=== PATIENT | male | born 1950 | race Caucasian/White ===

== ENCOUNTER → 2019-05-04 | Outpatient (CLI) | payer OTHER ==
[~2019-05-04] MED LIST: COREG25 MG PO; DEMADEX20 MG PO; DOXYCYCLINE 10100 MG PO; ELIQUIS5 MG PO; IBUPROFEN 600600 M1 PO; LISINOPRIL2.5 MG PO; OXYCONTIN10 M1 PO
== END ==
LOC: HYPER 05-01 10:41
DX: L97.822 Non-pressure chronic ulcer of other part of left lower leg with fat layer exposed (principal); I87.2 Venous insufficiency (chronic) (peripheral); I48.2 Chronic atrial fibrillation; L30.9 Dermatitis, unspecified; M10.9 Gout, unspecified; J44.9 Chronic obstructive pulmonary disease, unspecified; R60.0 Localized edema; F17.200 Nicotine dependence, unspecified, uncomplicated; Z79.01 Long term (current) use of anticoagulants

== ENCOUNTER → 2019-05-08 | Outpatient (CLI) | payer OTHER | LOC: HYPER 06:50 | DX: L97.825 Non-pressure chronic ulcer of other part of left lower leg with muscle involvement without evidence of necrosis (principal); I87.2 Venous insufficiency (chronic) (peripheral); I48.2 Chronic atrial fibrillation; L30.9 Dermatitis, unspecified; R60.0 Localized edema; J44.9 Chronic obstructive pulmonary disease, unspecified; M10.9 Gout, unspecified; F17.200 Nicotine dependence, unspecified, uncomplicated; F12.90 Cannabis use, unspecified, uncomplicated; Z79.01 Long term (current) use of anticoagulants ==

== ENCOUNTER 2019-05-09 11:19 | Observation (INO) | payer OTHER ==
[~2019-05-09] VITALS: Ht 193 cm; Wt 136.1 kg
[~2019-05-09 11:19] MED LIST changes: -COREG25 MG PO; -DEMADEX20 MG PO; -DOXYCYCLINE 10100 MG PO; -ELIQUIS5 MG PO; -LISINOPRIL2.5 MG PO; -OXYCONTIN10 M1 PO
[2019-05-09 12:11] VITALS: BP 122/62
[2019-05-09] MEDS ORDERED: COREG25 MG PO (12:21)
[2019-05-09] MEDS ORDERED: ELIQUIS5 MG PO (12:22)
[2019-05-09] MEDS ORDERED: LISINOPRIL2.5 MG PO (12:23)
[2019-05-09] MEDS ORDERED: DEMADEX20 MG PO (12:24)
[2019-05-09] MEDS ORDERED: OXYCONTIN10 M1 PO (12:25)
[2019-05-09] MEDS ORDERED: DOXYCYCLINE 10100 MG PO (12:28)
[2019-05-09 15:45] VITALS: BP 123/90
[2019-05-09 16:12] VITALS: BP 152/55
[2019-05-09 16:30] VITALS: BP 129/59
--- NOTE | 2019-05-09 16:40 | NUR ---
PT TRANSFERRED TO CCU POST LEFT LEG RUNOFF WITH STENT PLACEMENT. PT CARE ASSUMED APPROX 1545. PT ALERT AND ORIENTED X4.REPORTS PAIN IN RIBS WHERE CURRENT FRACTURES ARE 10. REQUESTED IV PAIN MEDS. SCHEDULED MEDS AND PRN MORPHINE GIVEN. PT MOOD IS AGITATED. DENIES ANYTHING THAT NURSING STAFF DID TO UPSET HIM. REPORTS THAT "I'M JUST READY TO GO HOME." RIGHT GROIN SITE C/D/I. BEDREST UNTIL 1815. NS AT 150ML/HR X3 HRS. NS STARTED LATE DUE TO NOT PUT IN EMAR AND ORDER WENT UN-NOTICED FOR 45MIN. PT UPSET BUT AGREEABLE. NECESSITY TO FLUSH CONTRAST FROM SYSTEM AND PROTECT KIDNEYS WAS EXPLAINED TO PT AND SPOUSE. REFUSES TO EAT. PT REQUIRED O2 UPON TRANSFER BUT O2 SAT WNL ON RA. RESTING AT THIS TIME.
[2019-05-09 17:30] VITALS: BP 122/69
--- NOTE | 2019-05-09 18:55 | NUR ---
PT LEAVING AMA AT THIS TIME. REITERATED PREVIOUS EDUCATION REGARDING RIGHT GROIN SITE AND NS INFUSION NOT COMPLETING AND POTENTIAL COMPLICATIONS. PT ADAMANT. AMA PAPERWORK SIGNED. POST PROCEDURE VS REFUSED. INTERMITTENLY OBTAINED PER PT ALLOWANCE. RIGHT GROIN SITE C/D/I. DR CORTEZ CALLED BUT HAS NOT RETUNRED CALL YET. LEFT WITH PT AND PROVIDING TRANSPORTATION HOME. F/U APPT GIVEN TO PT'S . IV OUT, TELE OFF.
--- NOTE | 2019-05-09 19:23 | NUR ---
PT ALSO NOTIFIED PRIOR TO LEAVING AMA THAT ON MINIMAL EXERTION HIS HR WAS SUSTAINING 120S-130S. WILL NOTIFY DR WHENEVER HE RETURNS CALL MADE TO HIM AFTER PT LEFT.
--- NOTE | 2019-05-09 19:44 | NUR ---
NEVER CALLED BACK TO NOTIFY HIM OF PT GOING AMA. PASSED TO NOC CHARGE NURSE INFORMATION TO GIVE DR IN CASE PAGE IS RETURNED.
== END 2019-05-09 19:20 | disposition home or self-care (01) ==
LOC: SPEC 11:19 → 2N 15:40
PROVIDERS: ADMIT Nuclear Medicine Nuclear Cardiology
DX: I73.9 Peripheral vascular disease, unspecified (principal); I25.10 Atherosclerotic heart disease of native coronary artery without angina pectoris; L97.929 Non-pressure chronic ulcer of unspecified part of left lower leg with unspecified severity; I12.9 Hypertensive chronic kidney disease with stage 1 through stage 4 chronic kidney disease, or unspecified chronic kidney disease; N18.9 Chronic kidney disease, unspecified; Z79.899 Other long term (current) drug therapy

== ENCOUNTER → 2019-05-16 | Outpatient (CLI) | payer OTHER ==
[~2019-05-16] MED LIST changes: +COREG25 MG PO; +DEMADEX20 MG PO; +DOXYCYCLINE 10100 MG PO; +ELIQUIS5 MG PO; +LISINOPRIL2.5 MG PO; +OXYCONTIN10 M1 PO
== END ==
LOC: HYPER 06:51
DX: L97.811 Non-pressure chronic ulcer of other part of right lower leg limited to breakdown of skin (principal); L97.825 Non-pressure chronic ulcer of other part of left lower leg with muscle involvement without evidence of necrosis; L30.9 Dermatitis, unspecified; G89.29 Other chronic pain; I87.2 Venous insufficiency (chronic) (peripheral); I48.2 Chronic atrial fibrillation; R60.0 Localized edema; J44.9 Chronic obstructive pulmonary disease, unspecified; M10.9 Gout, unspecified; F17.200 Nicotine dependence, unspecified, uncomplicated; Z79.01 Long term (current) use of anticoagulants

== ENCOUNTER → 2019-05-23 | Outpatient (CLI) | payer OTHER | LOC: HYPER 06:40 | DX: L97.822 Non-pressure chronic ulcer of other part of left lower leg with fat layer exposed (principal); L97.811 Non-pressure chronic ulcer of other part of right lower leg limited to breakdown of skin; I87.2 Venous insufficiency (chronic) (peripheral); I48.2 Chronic atrial fibrillation; L30.9 Dermatitis, unspecified; M10.9 Gout, unspecified; G89.29 Other chronic pain; R60.0 Localized edema; J44.9 Chronic obstructive pulmonary disease, unspecified; F17.200 Nicotine dependence, unspecified, uncomplicated; Z79.01 Long term (current) use of anticoagulants ==

== ENCOUNTER → 2019-06-01 | Outpatient (CLI) | payer OTHER | LOC: HYPER 06:50 | DX: L97.822 Non-pressure chronic ulcer of other part of left lower leg with fat layer exposed (principal); S22.42XD Multiple fractures of ribs, left side, subsequent encounter for fracture with routine healing; I87.2 Venous insufficiency (chronic) (peripheral); I48.2 Chronic atrial fibrillation; I73.9 Peripheral vascular disease, unspecified; L30.9 Dermatitis, unspecified; M10.9 Gout, unspecified; G89.29 Other chronic pain; R60.0 Localized edema; J44.9 Chronic obstructive pulmonary disease, unspecified; F17.200 Nicotine dependence, unspecified, uncomplicated; Z79.01 Long term (current) use of anticoagulants; X58.XXXD Exposure to other specified factors, subsequent encounter ==

== ENCOUNTER → 2019-06-15 | Outpatient (CLI) | payer OTHER | LOC: HYPER 06:41 | DX: L97.822 Non-pressure chronic ulcer of other part of left lower leg with fat layer exposed (principal); I87.2 Venous insufficiency (chronic) (peripheral); I48.2 Chronic atrial fibrillation; I73.9 Peripheral vascular disease, unspecified; L30.9 Dermatitis, unspecified; M10.9 Gout, unspecified; G89.29 Other chronic pain; R60.0 Localized edema; J44.9 Chronic obstructive pulmonary disease, unspecified; F17.200 Nicotine dependence, unspecified, uncomplicated; Z79.01 Long term (current) use of anticoagulants ==

== ENCOUNTER → 2019-06-29 | Outpatient (CLI) | payer OTHER | LOC: HYPER 07:27 | DX: L97.822 Non-pressure chronic ulcer of other part of left lower leg with fat layer exposed (principal); I87.2 Venous insufficiency (chronic) (peripheral); I48.2 Chronic atrial fibrillation; L30.9 Dermatitis, unspecified; I73.9 Peripheral vascular disease, unspecified; M10.9 Gout, unspecified; G89.29 Other chronic pain; R60.0 Localized edema; J44.9 Chronic obstructive pulmonary disease, unspecified; F17.200 Nicotine dependence, unspecified, uncomplicated; Z79.01 Long term (current) use of anticoagulants ==

== ENCOUNTER → 2019-07-17 | Outpatient (CLI) | payer OTHER | LOC: HYPER 13:45 | DX: L97.825 Non-pressure chronic ulcer of other part of left lower leg with muscle involvement without evidence of necrosis (principal); S22.42XD Multiple fractures of ribs, left side, subsequent encounter for fracture with routine healing; I87.2 Venous insufficiency (chronic) (peripheral); I48.20 Chronic atrial fibrillation, unspecified; I73.9 Peripheral vascular disease, unspecified; M10.9 Gout, unspecified; J44.9 Chronic obstructive pulmonary disease, unspecified; G89.29 Other chronic pain; F17.290 Nicotine dependence, other tobacco product, uncomplicated; Z79.01 Long term (current) use of anticoagulants; V29.9XXD Motorcycle rider (driver) (passenger) injured in unspecified traffic accident, subsequent encounter ==

== ENCOUNTER → 2019-08-02 | Outpatient (CLI) | payer OTHER | LOC: HYPER 11:16 | DX: L97.822 Non-pressure chronic ulcer of other part of left lower leg with fat layer exposed (principal); I87.2 Venous insufficiency (chronic) (peripheral); I48.20 Chronic atrial fibrillation, unspecified; L30.9 Dermatitis, unspecified; M10.9 Gout, unspecified; G89.29 Other chronic pain; I73.9 Peripheral vascular disease, unspecified; R60.0 Localized edema; J44.9 Chronic obstructive pulmonary disease, unspecified; F17.200 Nicotine dependence, unspecified, uncomplicated; Z79.01 Long term (current) use of anticoagulants ==

== ENCOUNTER → 2019-08-15 | Outpatient (CLI) | payer OTHER | LOC: CAT 07-17 10:05 → HYPER 08:58 | DX: L97.822 Non-pressure chronic ulcer of other part of left lower leg with fat layer exposed (principal); I87.2 Venous insufficiency (chronic) (peripheral); I48.91 Unspecified atrial fibrillation; L30.9 Dermatitis, unspecified; M10.9 Gout, unspecified; G89.29 Other chronic pain; I73.9 Peripheral vascular disease, unspecified; R60.0 Localized edema; J44.9 Chronic obstructive pulmonary disease, unspecified; F17.200 Nicotine dependence, unspecified, uncomplicated; Z79.01 Long term (current) use of anticoagulants ==